=== PATIENT | female | born 1990 | race Caucasian/White ===

== ENCOUNTER 2018-05-12 15:33 | Outpatient (CLI) ==
[2014-02-22 14:19] VITALS: BMI 34.3
== END 2018-05-12 15:34 | disposition home or self-care (01) ==
LOC: RHC-LAB 15:33
PROVIDERS: ATTEND Nurse Practitioner Family
DX: F41.9 Anxiety disorder, unspecified (principal); E66.9 Obesity, unspecified
CPT/HCPCS: 36415; 80053; 80061; 84443; 85025